=== PATIENT | female | born 1960 | race Caucasian/White ===

== ENCOUNTER 2017-04-10 16:53 | Emergency (ER) | payer BC ==
[~2017-04-10] VITALS: Ht 167.6 cm; Wt 72.6 kg
[~2017-04-10 16:53] MED LIST: ALPR1TAB72 PO; HYOS0.3710 PO; LACO100T2 PO; LAMO100T69 PO; LAMO200T14 PO; NF-CARB200 PO; PARO20TA57 PO
--- NOTE | 2017-04-10 17:13 | ED Upper Extremity ---
General Chief Complaint: Upper Extremity Stated Complaint: R HAND FINGER INJ History of Present Illness Time seen by provider: 17:10 Initial Comments Patient reports approximate 6 months ago that she injured the third digit on her right hand at the PIP joint. She had a closed reduction at [facility] that his continued to have an ulnar deviation distal to this. Yesterday evening while at [place] she fell and landed on her right hand. She is left-hand dominant. Pain/Injury Location: right hand, right 3rd finger, right 4th finger Method of Injury: fell Modifying Factors: Improves With Immobilization Allergies and Home Medications Allergies Coded Allergies: No Known Drug Allergies (Unverified , 08/08/11) Home Medications Alprazolam 1 Mg Tab.rapdis, 1 MG PO, (Reported) Carbamazepine 200 Mg Cpmp.12hr, 400 MG PO BID, (Reported) Hyoscyamine Sulfate 0.375 Mg Tab.sr.12h, 1 EACH PO BID, (Reported) Lacosamide 100 Mg Tablet, 100 MG PO BID, (Reported) Lamotrigine 100 Mg Tablet, 1 EACH PO DAILY, (Reported) Lamotrigine 200 Mg Tablet, 1 EACH PO HS, (Reported) Paroxetine Hcl 20 Mg Tablet, 20 MG PO ONCE, (Reported) Constitutional: no symptoms reported, see HPI Musculoskeletal: see HPI, joint pain (third and fourth digits MCP joints) All Other Systems Reviewed Negative Unless Noted: Yes Past Ifutcyl-Uafagt-Gohebh Hx Patient Social History Recent Foreign Travel: No Contact w/Someone Who Travel: No Reviewed Nursing Assessment Reviewed/Agree w Nursing PMH: Yes Physical Exam Vital Signs Vital Sign - Last 12Hours 04/10/17 16:57 Temp 97.4 Pulse 99 Resp 18 B/P (MAP) 177/100 Pulse Ox 98 Capillary Refill : General Appearance: WD/WN, no apparent distress Cardiovascular: normal peripheral pulses, regular rate, rhythm, no murmur Respiratory: chest non-tender, lungs clear, normal breath sounds Gastrointestinal: normal bowel sounds, non tender, soft Wrist: Yes normal inspection, Yes non-tender, Yes normal ROM Hand: Right, asymmetry, bone tenderness, deformity (PIP joint of the third digit, ulnar deviation), limited ROM, soft tissue tenderness (proximal phalanx third and fourth fingers), stiffness, swelling Neurologic/Psychiatric: no motor/sensory deficits, alert, normal mood/affect, oriented x 3 Skin: normal color, warm/dry Progress/Results/Core Measures Results/Orders My Orders Orders - ANGELA ARIZMENDI Hand, Right, 3 Views (04/10/17 17:14) Vital Signs/I&O Vital Sign - Last 12Hours 04/10/17 04/10/17 16:57 18:15 Temp 97.4 97.4 Pulse 99 99 Resp 18 18 B/P (MAP) 177/100 Pulse Ox 98 98 Progress Note : Progress Note 1730 reviewed x-ray results with the patient and her family. Poornima tape the third and fourth fingers and applied a wrist splint to the hand. Discussed discharge planning, all questions answered, patient agreed to follow up with orthopedics. Diagnostic Imaging Diagonstic Imaging: Xray Plain Films/CT/US/NM/MRI: hand Comments NAME: BOBBI [facility]KEY [facility] REC#: [id number] PT STATUS: REG ER : 1960 PHYSICIAN: ANGELA ARIZMENDI ADMIT DATE: 04/10/17/ER Signed Date of Exam: 04/10/17 HAND, RIGHT, 3 VIEWS INDICATION: Fall, deformity of the third digit. EXAMINATION: Three views of the right hand were obtained. FINDINGS: Marked degenerative change at the PIP joint of the third digit with mild ulnar subluxation and angulation at this site. There is a small sliver of cortical bone adjacent to the joint. I am unable to determinate if this is an acute avulsion fracture or a chronic finding. There is an intra-articular fracture involving the corner of the proximal phalanx of the third digit at the metacarpal phalangeal joint with no displacement at the level of the articular surface but 1-2 mm of displacement along the lateral cortex. A similar appearing fracture is seen at the metacarpophalangeal joint of the fourth digit. IMPRESSION: There are multiple fractures as described. No other acute abnormality is seen. Dictated by: Dictated on workstation # [id number] Dict: 04/10/174 Trans: 04/10/171756 Interpreted by: CARMEN ORTEGA MD Electronically signed by: CARMEN ORTEGA MD 04/10/171756 Reviewed: Reviewed by Me Departure Impression Impression: Primary Impression: Fracture of phalanx of right hand, multiple sites, closed Qualified Codes: S62.609A - Fracture of unspecified phalanx of unspecified finger, initial encounter for closed fracture Disposition: 01 HOME, SELF-CARE Condition: Stable Departure-Patient Inst. Decision time for Depature: 18:00 Referrals: [facility] (PCP/Family) Primary Care Physician Patient Instructions: Hand Fracture (DC) Add. Discharge Instructions: Ice to right hand 20 minutes every 2-3 hours. Splint and poornima tape fingers as instructed. Follow-up with orthopedic this week. Return to emergency department for new injuries or problems. May take Tylenol 650 mg every 6 hours and/or ibuprofen 600 mg every 8 hours. All discharge instructions reviewed with patient and/or family. Voiced understanding. Copy Copies To 1: ALMA DELIA CALDERA MD, AMY ARNP Apr 10, 2017 17:13
--- NOTE | 2017-04-10 17:49 | Diagnostic Imaging Report ---
INDICATION: Fall, deformity of the third digit. EXAMINATION: Three views of the right hand were obtained. FINDINGS: Marked degenerative change at the PIP joint of the third digit with mild ulnar subluxation and angulation at this site. There is a small sliver of cortical bone adjacent to the joint. I am unable to determinate if this is an acute avulsion fracture or a chronic finding. There is an intra-articular fracture involving the corner of the proximal phalanx of the third digit at the metacarpal phalangeal joint with no displacement at the level of the articular surface but 1-2 mm of displacement along the lateral cortex. A similar appearing fracture is seen at the metacarpophalangeal joint of the fourth digit. IMPRESSION: There are multiple fractures as described. No other acute abnormality is seen. Dictated by: Dictated on workstation # [id number]
[2017-04-10 18:15] VITALS: BP 177/100
== END 2017-04-10 18:19 | disposition home or self-care (01) ==
LOC: EDUNIT# 16:53 → ER 16:55
DX: S62.642A Nondisplaced fracture of proximal phalanx of right middle finger, initial encounter for closed fracture (principal); W19.XXXA Unspecified fall, initial encounter
CPT/HCPCS: 73130; 99282

== ENCOUNTER 2017-05-18 14:46 | Outpatient (RCR) | payer BC | END 2017-06-03 14:40 | disposition home or self-care (01) | PROVIDERS: ATTEND Emergency Medicine | DX: S62.612A Displaced fracture of proximal phalanx of right middle finger, initial encounter for closed fracture (principal); S62.614A Displaced fracture of proximal phalanx of right ring finger, initial encounter for closed fracture; W19.XXXA Unspecified fall, initial encounter ==

== ENCOUNTER → 2018-05-29 | Outpatient (CLI) | payer BC ==
--- NOTE | 2018-05-29 18:07 | Diagnostic Imaging Report ---
INDICATION: Screening. The current study was also evaluated with a Computer Aided Detection (CAD) system. COMPARISON: Comparison made with prior examination from 09/19/2012. FINDINGS: The fibroglandular tissue is heterogeneously dense bilaterally. There are a few benign-type calcifications. There is no new dominant mass, spiculated lesion, or suspicious calcification identified. The skin, nipples, and axillae are unremarkable. IMPRESSION: Benign. ACR BI-RADS Category 2: Benign findings. Result letter will be mailed to the patient. Note: At least 10% of breast cancer is not imaged by mammography. Dictated by: Dictated on workstation # [id number]
== END ==
LOC: RAD 09:56
PROVIDERS: ATTEND Nurse Practitioner Primary Care
DX: Z12.31 Encounter for screening mammogram for malignant neoplasm of breast (principal)
CPT/HCPCS: 77067

== ENCOUNTER → 2021-09-10 | Outpatient (CLI) | payer BC ==
--- NOTE | 2021-09-10 10:14 | Diagnostic Imaging Report ---
INDICATION: Abdominal pain Gallbladder sonography performed in the routine fashion. The liver shows normal echogenicity with no focal lesions. Portal vein is patent with hepatopetal flow. Gallbladder appears unremarkable with no stones or wall thickening. Common duct measured 4.6 mm. The pancreas is not well seen due to overlying gas. Visualized portions of the aorta and IVC are normal. There is no ascites. Right kidney was normal measuring 9.1 cm in length. IMPRESSION: Unremarkable ultrasound of the right upper quadrant. Dictated by: Dictated on workstation # [id number]
== END ==
LOC: RAD 08:00
PROVIDERS: ATTEND Internal Medicine Gastroenterology
DX: R10.9 Unspecified abdominal pain (principal); R19.7 Diarrhea, unspecified
CPT/HCPCS: 76705

== ENCOUNTER 2023-07-27 16:54 | Emergency (ER) | payer BC ==
[~2023-07-27] VITALS: Ht 170.1 cm; Wt 62.5 kg
--- NOTE | 2023-07-27 18:07 | ED General ---
General Chief Complaint: General Problems/Pain Stated Complaint: DEHYDRATED, ELEVATED BLOOD PRESSURE, WEAK Nursing Triage Note: PT TO TRIAGE WITH CC OF HIGH BP, "MILD VOMITING," DIZZINESS, NAUSEA AND WEAKNESS. PT REPORTS HAS HAD WEAKNESS SINCE APPROX 06/16. 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 PT A&OX4 Source of Information: Patient, Other (MALE S.O. TRIES TO DO ALL TALKING FOR PT) Exam Limitations: Other (BOTH PT And S.O. ARE [employer] HISTORIANS) History of Present Illness Date Seen by Provider: Jul 27, 2023 Time Seen by Provider: 18:05 Initial Comments PT ARRIVES VIA POV FROM HOME C/O GENERALIZED WEAKNESS SINCE 06/16/23 ONGOING DIZZINESS AND NAUSEA, VOMITED X 1 LAST NIGHT HAS CHRONIC DIARRHEA--HAD 1 LOOSE STOOL TODAY. NO BLACK/BLOODY/TARRY STOOLS NO FEVER/SWEATS/CHILLS NO CHEST PAIN NO SHORTNESS OF BREATH NO COUGH NO ABDOMINAL PAIN NO HEADACHE NO VISION CHANGES NO PARESTHESIAS OR MOTOR DEFICITS NO URINARY SYMPTOMS BP AT HOME 165/82 PT HAS NOT SOUGHT CARE UNTIL TONIGHT ( TUESDAY NIGHT BEFORE ) SYMPTOMS NO DIFFERENT TONIGHT IN ANY WAY PT STATES SHE WAS IN [place] ON 06/16/23--SAW A NEUROLOGIST THERE AND HAD "MRI" AND ROUTINE LAB WORK DONE--LATER ON DIRECT QUESTIONING ABOUT EXACTLY WHAT TYPE OF TESTS THE PT HAD, BOTH PT AND S.O. ARE NOT SURE IF PT HAD MRI OR EEG, AND ARE UNABLE TO STATE WHAT RESULTS SHOWED, BUT ON DIRECT QUESTIONING THEY STATE THERE WERE NO TUMORS OR MASSES. THEY DO NOT HAVE A FOLLOW UP APPOINTMENT THERE PT HAS LONGSTANDING SEIZURE DISORDER, CEREBRAL PALSY AND HTN NO MEDICATION CHANGES S.O. STATES "I KNOW SHE'S REALLY DEHYDRATED BECAUSE SHE HAS IBS AND SHE CAN'T EAT ANYTHING FRIED" "SHE NEEDS IV FLUIDS--SHE'S VERY DEHYDRATED" PT HAS BEEN EATING AND DRINKING USUAL--NORMAL FOR HER VOIDING NORMALLY PT IS NOT COVID OR FLU VACCINATED. PCP: DR. BERRY IN [place], [place]. PT LIVES HERE IN [place] Allergies and Home Medications Allergies Coded Allergies: No Known Drug Allergies (Unverified , 08/08/11) Patient Home Medication List Home Medication List Reviewed: Yes Alprazolam (Alprazolam) 1 Mg Tab.rapdis, 1 MG PO, (Reported) Entered as Reported by: LORAINE AGARWAL on 08/08/112115 Carbamazepine (Carbatrol) 200 Mg Cpmp.12hr, 400 MG PO BID, (Reported) Entered as Reported by: LORAINE AGARWAL on 08/08/112115 Cefdinir (Cefdinir) 300 Mg Capsule, 300 MG PO BID Prescribed by: MARIE VALDIVIA on 07/27/231937 Hyoscyamine Sulfate (Hyoscyamine Er 0.375 Mg) 0.375 Mg Tab.sr.12h, 1 EACH PO BID, (Reported) Entered as Reported by: LORAINE AGARWAL on 08/08/112115 Lacosamide (Vimpat) 100 Mg Tablet, 100 MG PO BID, (Reported) Entered as Reported by: LORAINE AGARWAL on 08/08/112115 Lamotrigine (Lamictal) 100 Mg Tablet, 1 EACH PO DAILY, (Reported) Entered as Reported by: LORAINE AGARWAL on 08/08/112115 Lamotrigine (Lamictal) 200 Mg Tablet, 1 EACH PO HS, (Reported) Entered as Reported by: LORAINE AGARWAL on 08/08/112115 Paroxetine Hcl (Paroxetine Hcl) 20 Mg Tablet, 20 MG PO ONCE, (Reported) Entered as Reported by: LORAINE AGARWAL on 08/08/112115 Review of Systems Review of Systems Constitutional: see HPI, weakness EENTM: no symptoms reported Respiratory: no symptoms reported Cardiovascular: no symptoms reported Gastrointestinal: see HPI Genitourinary: no symptoms reported Musculoskeletal: no symptoms reported Skin: no symptoms reported Psychiatric/Neurological: No Symptoms Reported Hematologic/Lymphatic: No Symptoms Reported Immunological/Allergic: no symptoms reported Past Ihcgnxy-Gbealj-Nvxxcg Hx Patient Social History Tobacco Use?: No Substance use?: No Alcohol Use?: No Past Medical History Surgery/Hospitalization HX: HTN, IBS, SEIZURES, CP Surgeries: No Respiratory: No Cardiac: Yes Hypertension Neurological: Yes Cerebral Palsy, Seizure Disorder Integumentary: No Physical Exam Vital Signs Vital Signs - First Documented 07/27/23 17:29 Temp 36.6 Pulse 73 Resp 16 B/P (MAP) 158/80 (106) Pulse Ox 98 O2 Delivery Room Air Capillary Refill : Less Than 3 Seconds Height, Weight, BMI Height: 5'6.00" Weight: 160lbs. oz. 72.737861as; 21.00 BMI Method:Stated General Appearance: No Apparent Distress, WD/WN, Other (SITTING UP, SMILING, DOES NOT APPEAR ILL OR TO BE IN ANY DISCOMFORT OR DISTRESS) HEENT: PERRL/EOMI, TMs Normal, Normal ENT Inspection, Pharynx Normal Neck: Full Range of Motion, Normal Inspection, Non Tender, Supple; No Carotid Bruit, No JVD Respiratory: Normal Breath Sounds, No Accessory Muscle Use, No Respiratory Distress Cardiovascular: Regular Rate, Rhythm, No Edema, No Gallop, No JVD, No Murmur, Normal Peripheral Pulses Gastrointestinal: Normal Bowel Sounds, No Organomegaly, No Pulsatile Mass, Non Tender, Soft Back: No CVA Tenderness, No Vertebral Tenderness Extremity: Normal Inspection, No Pedal Edema, Other (DTR'S INTACT) Neurologic/Psychiatric: Alert, Oriented x3, No Motor/Sensory Deficits, Normal Mood/Affect, overedger II-XII Norm as Tested Skin: Normal Color, Warm/Dry Progress/Results/Core Measures Suspected Sepsis SIRS Temperature: Pulse: 73 Respiratory Rate: 16 Laboratory Tests 07/27/23 18:12: White Blood Count 7.4 Blood Pressure 158 /80 Mean: 106 Laboratory Tests 07/27/23 18:12: Creatinine 0.68, Platelet Count 259, Total Bilirubin 0.2 Results/Orders Lab Results Laboratory Tests Test 07/27/23 18:12 07/27/23 18:17 07/27/23 18:54 Range/Units White Blood Count 7.4 4.3-11.0 10^3/uL Red Blood Count 4.76 3.80-5.11 10^6/uL Hemoglobin 13.5 11.5-16.0 g/dL Hematocrit 41 35-52 % Mean Corpuscular Volume 86 80-99 fL Mean Corpuscular Hemoglobin 28 25-34 pg Mean Corpuscular Hemoglobin Concent 33 32-36 g/dL Red Cell Distribution Width 14.0 10.0-14.5 % Platelet Count 259 130-400 10^3/uL Mean Platelet Volume 8.8 L 9.0-12.2 fL Immature Granulocyte % (Auto) 0 % Neutrophils (%) (Auto) 74 42-75 % Lymphocytes (%) (Auto) 18 12-44 % Monocytes (%) (Auto) 7 0-12 % Eosinophils (%) (Auto) 0 0-10 % Basophils (%) (Auto) 0 0-10 % Neutrophils # (Auto) 5.4 1.8-7.8 10^3/uL Lymphocytes # (Auto) 1.3 1.0-4.0 10^3/uL Monocytes # (Auto) 0.5 0.0-1.0 10^3/uL Eosinophils # (Auto) 0.0 0.0-0.3 10^3/uL Basophils # (Auto) 0.0 0.0-0.1 10^3/uL Immature Granulocyte # (Auto) 0.0 0.0-0.1 10^3/uL Sodium Level 134 L 135-145 MMOL/L Potassium Level 4.1 3.6-5.0 MMOL/L Chloride Level 98 98-107 MMOL/L Carbon Dioxide Level 26 21-32 MMOL/L Anion Gap 10 5-14 MMOL/L Blood Urea Nitrogen 5 L 7-18 MG/DL Creatinine 0.68 0.60-1.30 MG/DL Estimat Glomerular Filtration Rate 97 BUN/Creatinine Ratio 7 Glucose Level 102 70-105 MG/DL Calcium Level 9.3 8.5-10.1 MG/DL Corrected Calcium 9.1 8.5-10.1 MG/DL Magnesium Level 2.1 1.6-2.4 MG/DL Total Bilirubin 0.2 0.1-1.0 MG/DL Aspartate Amino Transf (AST/SGOT) 13 5-34 U/L Alanine Aminotransferase (ALT/SGPT) 12 0-55 U/L Alkaline Phosphatase 158 H 40-136 U/L Troponin I < 0.028 <0.028 NG/ML Total Protein 7.5 6.4-8.2 GM/DL Albumin 4.2 3.2-4.5 GM/DL TSH [place] Testing 1.60 0.35-4.94 UIU/ML Carbamazepine (Tegretol) Level 7.7 4.0-12.0 UG/ML Influenza Type A (RT-PCR) Not Detected Not Detecte Influenza Type B (RT-PCR) Not Detected Not Detecte SARS-CoV-2 RNA (RT-PCR) Not Detected Not Detecte Urine Color YELLOW Urine Clarity CLOUDY Urine pH 7.0 5-9 Urine Specific [place] 1.015 L 1.016-1.022 Urine Protein 1+ H NEGATIVE Urine Glucose (UA) NEGATIVE NEGATIVE Urine Ketones TRACE H NEGATIVE Urine Nitrite NEGATIVE NEGATIVE Urine Bilirubin NEGATIVE NEGATIVE Urine Urobilinogen 0.2 < = 1.0 MG/DL Urine Leukocyte Esterase 2+ H NEGATIVE Urine RBC (Auto) NEGATIVE NEGATIVE Urine RBC NONE /HPF Urine WBC 50-100 H /HPF Urine Squamous Epithelial Cells 0-2 /HPF Urine Crystals PRESENT H /LPF Urine Amorphous Sediment LARGE LILY PHOSPHATE H /LPF Urine Bacteria MODERATE H /HPF Urine Casts NONE /LPF Urine Mucus NEGATIVE /LPF Urine Culture Indicated YES My Orders Orders - MARIE VALDIVIA DO Ed Iv/Invasive Line Start (07/27/23 18:04) Ekg Tracing (07/27/23 18:04) Monitor-Rhythm Ecg Trace Only (07/27/23 18:04) Cbc And Automated Diff (07/27/23 18:04) Comprehensive Metabolic Panel (07/27/23 18:04) Magnesium (07/27/23 18:04) Thyroid Analyzer (07/27/23 18:04) Ua Culture If Indicated (07/27/23 18:04) Troponin I [place] (07/27/23 18:04) Chest 1 View, Ap/Pa Only (07/27/23 18:04) Covid 19 Inhouse Test (07/27/23 18:04) Influenza A And B By Pcr (07/27/23 18:04) Carbamazepine (Tegretol) (07/27/23 19:10) Urine Culture (07/27/23 18:54) Ceftriaxone Iv/Im (Ceftriaxone Iv/Im) (07/27/23 19:30) Rx-Cefdinir Capsule (Rx-Omnicef Capsule) (07/27/23 21:00) Rx-Cefdinir Capsule (Rx-Omnicef Capsule) (07/27/23 19:50) Medications Given in ED Current Medications Medications Dose Ordered Sig/Astrid Route Start Time Stop Time Status Last Admin Dose Admin Ceftriaxone Sodium 1000 mg/ Sodium Chloride 50 ml @ 100 mls/hr ONCE ONCE IV 07/27/23 19:30 07/27/23 19:59 DC 07/27/23 19:47 100 MLS/HR Vital Signs/I&O 07/27/23 07/27/23 17:29 20:17 Temp 36.6 Pulse 73 73 Resp 16 16 B/P (MAP) 158/80 (106) 167/62 Pulse Ox 98 98 O2 Delivery Room Air Room Air Capillary Refill : Less Than 3 Seconds Blood Pressure Mean: 106 Progress Note : Progress Note VITALS ON ARRIVAL: TEMP 36.6=98.0, HR 73, RR 16, BP 158/80, O2 SAT 98% ON ROOM AIR GIVEN: -ROCEPHIN LABS: -CBC NORMAL -CMP NORMAL -MG NORMAL -TROPONIN NEGATIVE -TSH NORMAL -UA 2+ LEUKOCYTES, 50-100 WBC, MODERATE BACTERIA--URINE CULTURE PENDING -COVID/FLU NEGATIVE -CARBAMAZEPINE LEVEL NORMAL EKG NORMAL CXR NORMAL UNEVENTFUL ER STAY PT VOICED NO COMPLAINTS DURING ER STAY AND EXAM IS NORMAL VITALS STABLE DISCUSSED TEST RESULTS, SYMPTOMATIC TREATMENT, MEDICATION, NEED FOR FOLLOW UP AND RETURN PRECAUTIONS ECG Initial ECG Impression Date: Jul 27, 2023 Initial ECG Impression Time: 18:18 Initial ECG Rate: 66 Initial ECG Rhythm: Normal Sinus Initial ECG Intervals: Normal Initial ECG Impression: Normal Initial ECG Comparisson: No Previous ECG Available Diagnostic Imaging Comments CXR--PER RADIOLOGIST REPORT AT 1832 FINDINGS: Lungs/pleura: Lungs are clear. There is no pneumothorax. There is no pleural effusion. Mediastinum: Unremarkable. Pulmonary vasculature: Unremarkable. Heart: Unremarkable. Bones/extrathoracic soft tissue: Unremarkable. IMPRESSION: There is no radiographic evidence of acute cardiopulmonary process. Reviewed: Reviewed by Me Departure Impression Primary Impression: Urinary tract infection Additional Impression: Generalized weakness Disposition: 01 HOME, SELF-CARE Condition: Stable Departure-Patient Inst. Decision time for Depature: 19:35 Referrals: NO,LOCAL PHYSICIAN (PCP/Family) Primary Care Physician Patient Instructions: Urinary Tract Infection, Adult (DC), Weakness ED Add. Discharge Instructions: LOTS OF CLEAR LIQUIDS--WATER, BROTH, JELLO, GATORADE DRINK ENOUGH SO YOU ARE URINATING EVERY 2-3 HOURS WHILE AWAKE CONTINUE YOUR REGULAR MEDICATIONS PRESCRIBED FOLLOW UP WITH YOUR DR NEXT WEEK FOR RECHECK All discharge instructions reviewed with patient and/or family. Voiced understanding. Scripts Cefdinir (Cefdinir) 300 Mg Capsule 300 MG PO BID, #20 CAP Prov: MARIE VALDIVIA DO 07/27/23 MARIE VALDIVIA DO Jul 27, 2023 18:07
[2023-07-27 18:18] LABS: BASOPHILS % (AUTO) 0 % (0-10); EOSINOPHILS % (AUTO) 0 % (0-10); HEMATOCRIT 41 % (35-52); HEMOGLOBIN 13.5 g/dL (11.5-16.0); LYMPHOCYTES # (AUTO) 1.3 10^3/uL (1.0-4.0); LYMPHOCYTES % (AUTO) 18 % (12-44); MEAN CORPUSCULAR HEMOGLOBIN 28 pg (25-34); MEAN CORPUSCULAR HGB CONC 33 g/dL (32-36); MEAN CORPUSCULAR VOLUME 86 fL (80-99); MEAN PLATELET VOLUME 8.8 fL (9.0-12.2); MONOCYTES # (AUTO) 0.5 10^3/uL (0.0-1.0); MONOCYTES % (AUTO) 7 % (0-12); NEUTROPHILS # (AUTO) 5.4 10^3/uL (1.8-7.8); NEUTROPHILS % (AUTO) 74 % (42-75); PLATELET COUNT 259 10^3/uL (130-400); WHITE BLOOD COUNT 7.4 10^3/uL (4.3-11.0)
--- NOTE | 2023-07-27 18:26 | Diagnostic Imaging Report ---
CLINICAL INDICATION: Patient with chest pain. EXAM: Portable chest x-ray upright view. COMPARISON: None. FINDINGS: Lungs/pleura: Lungs are clear. There is no pneumothorax. There is no pleural effusion. Mediastinum: Unremarkable. Pulmonary vasculature: Unremarkable. Heart: Unremarkable. Bones/extrathoracic soft tissue: Unremarkable. IMPRESSION: There is no radiographic evidence of acute cardiopulmonary process. Dictated by: Dictated on workstation # [id number]
[2023-07-27 18:38] LABS: ALANINE AMINOTRANSFERASE 12 U/L (0-55); ALBUMIN 4.2 GM/DL (3.2-4.5); ALKALINE PHOSPHATASE 158 U/L (40-136); BILIRUBIN,TOTAL 0.2 MG/DL (0.1-1.0); BUN/CREATININE RATIO 7; CALCIUM 9.3 MG/DL (8.5-10.1); CARBON DIOXIDE 26 MMOL/L (21-32); CHLORIDE 98 MMOL/L (98-107); CREATININE SERUM 0.68 MG/DL (0.60-1.30); GFR ESTIMATED 97; GLUCOSE 102 MG/DL (70-105); MAGNESIUM 2.1 MG/DL (1.6-2.4); POTASSIUM 4.1 MMOL/L (3.6-5.0); SODIUM 134 MMOL/L (135-145); TOTAL PROTEIN 7.5 GM/DL (6.4-8.2)
[2023-07-27 19:19] LABS: BILIRUBIN,URINE NEGATIVE (NEGATIVE); CLARITY,URINE CLOUDY; COLOR,URINE YELLOW; GLUCOSE, URINE (UA) NEGATIVE (NEGATIVE); KETONES,URINE TRACE (NEGATIVE); LEUKOCYTE ESTERASE ,URINE 2+ (NEGATIVE); NITRITE,URINE NEGATIVE (NEGATIVE); PROTEIN,URINE 1+ (NEGATIVE)
[2023-07-27 19:20] LABS: AMORPHOUS SEDIMENT,UR LARGE AMOR PHOSPHATE /LPF; BACTERIA,URINE MODERATE /HPF; SQUAMOUS EPITHELIAL CELL,UR 0-2 /HPF; WBC,URINE 50-100 /HPF
[2023-07-27] MEDS ORDERED: cefTRIAXone IV/IM 1,000 MG in NS (IVPB) 50 ML 50 ML IV ONE (19:30)
[2023-07-27] MEDS ORDERED: CEFD300C3 PO (19:38)
[2023-07-27] MEDS ORDERED: RX-CEFDINIR 300 MG CAP PPK #2 PO ONE (19:50)
[2023-07-27 20:17] VITALS: BP 167/62
[2023-07-27] MEDS ORDERED: RX-CEFDINIR 300 MG CAP PPK #2 PO SCH (21:00)
== END 2023-07-27 20:17 | disposition home or self-care (01) ==
LOC: EDUNIT# 16:54 → ER 17:00
DX: N39.0 Urinary tract infection, site not specified (principal); R53.1 Weakness
CPT/HCPCS: 36415; 71045; 80053; 80156; 81000; 83735; 84443; 84484; 85025; 87088; 87636; 93005; 93041